=== PATIENT | female | born 1985 ===

== ENCOUNTER 2017-07-18 12:02 | Emergency (ER) | payer MEDICAID ==
[2017-07-18 12:28] VITALS: BMI 36.3
--- NOTE | 2017-07-18 16:09 | US ---
PROCEDURE: OB Pelvic Ultrasound HISTORY: Decreased Movement LMP: 10/19/2016. COMPARISON: None available. FINDINGS: UTERUS: Intrauterine gestation is identified in cephalad lie with biophysical profile performed indicating 8/8 total score. Internal cervical os appears closed with the cervix measuring 4.7 cm. biometry was not performed as requested. The following biophysical profile scores were obtained: breathing movements 2. movements 2. tones 2. Amniotic fluid 2. MALIK 13.6 cm. Further clinical correlation is advised. cardiac activity recorded 149 beats per minute. The placenta appears posterior and fundal with no evidence of previa or definite abruption. biometry was not obtained in this examination due to its at urgent/ emergent nature. Elective ultrasonography can be performed for full by out metric measurements as well as anatomical survey if clinically warranted. CERVIX: As above. RIGHT OVARY: Not identified. LEFT OVARY: None identified. FREE FLUID: None. OTHER FINDINGS: None. IMPRESSION: Biophysical profile score 8/8 total, as described above.
[2017-07-18 20:59] VITALS: BP 108/49; PULSE 83; RESP 16; TEMP 97.4; O2SAT 98
== END 2017-07-18 16:25 | disposition home or self-care (01) ==
LOC: H.EROB2 12:02
DX: O36.8130 Decreased fetal movements, third trimester, not applicable or unspecified (principal); Z3A.38 38 weeks gestation of pregnancy